=== PATIENT | male | born 1985 | race Caucasian/White ===

== ENCOUNTER → 2021-08-05 09:01 | Outpatient (BNVA) | payer OTHER, SELFPAY | PROVIDERS: Visit Provider Psychiatry & Neurology Psychiatry | DX: F33.2 Major depressive disorder, recurrent severe without psychotic features (principal) | CPT/HCPCS: 80061; 83036 ==

== ENCOUNTER → 2021-11-12 14:30 | Outpatient (BNVA) | payer MEDICAID, OTHER, SELFPAY ==
[2021-09-29 12:14] VITALS: BP 128/81; BMI 23.8
== END ==
PROVIDERS: Visit Provider Psychiatry & Neurology Psychiatry
DX: F41.1 Generalized anxiety disorder (principal); F33.2 Major depressive disorder, recurrent severe without psychotic features; F15.10 Other stimulant abuse, uncomplicated; F10.20 Alcohol dependence, uncomplicated; F12.20 Cannabis dependence, uncomplicated; F17.200 Nicotine dependence, unspecified, uncomplicated
CPT/HCPCS: 99214

== ENCOUNTER → 2021-12-17 11:19 | Outpatient (BNVA) | payer MEDICAID, SELFPAY ==
[2021-09-29 12:14] VITALS: BP 128/81; BMI 23.8
== END ==
PROVIDERS: PCP Family Medicine; Visit Provider Family Medicine
DX: R30.0 Dysuria (principal)
CPT/HCPCS: 81000; 87491; 87591

== ENCOUNTER 2021-12-20 18:45 | Emergency (ER) | payer MEDICAID, SELFPAY ==
[2021-09-29 12:14] VITALS: BP 128/81; BMI 23.8
[2021-12-20 19:05] VITALS: BP 150/75; PULSE 97; RESP 16; TEMP 36.7; O2SAT 94; BMI 25.0
--- NOTE | 2021-12-20 19:13 | W.ED.WOUNDLC ---
HPI - Wound/Laceration General: Chief Complaint: Wound/Laceration Stated Complaint: RT leg cyst Time Seen by Provider: 12/20/21 18:50 History of Present Illness: 36-year-old male patient comes in for area of erythema and tenderness to the right upper thigh. Patient reports noticing a lesion 2 days ago that looked like a wood. Today patient went to work and when he came home he had significant reddened area of redness with streaking around it. Patient denies any fever. Patient reports pain. Patient reports tetanus is up-to-date. Review of Systems General: Reports: 10 or more systems reviewed and unremarkable except in HPI and below Skin/Breast: Reports: erythema and changing lesions [facility] PFSH: Medical History (Updated 12/20/21 @ 19:26 by TON Helms) Psychiatric care Surgical History (Updated 12/17/21 @ 11:01 by Pamela Torres DO) History of facial surgery April 2021 Status post adenoidectomy Family History Grandmother Cancer colon Social History Smoking and tobacco status: current every day smoker cigarettes Packs smoked per day: 1 Years cigarettes smoked: 17 Quit status (tobacco): has tried quititng Number of times tried to quit tobacco: 2 Second hand smoke exposure: Yes Physical Exam Const: COMMON NORMALS: alert Resp: COMMON NORMALS: normal respiratory effort Cardio: COMMON NORMALS: regular rate and regular rhythm RATE: regular rate RHYTHM: regular rhythm Extremity: RIGHT LOWER EXTREMITY: Yes upper leg (8 cm area of redness surrounding a punctate lesion. No fluctuance) Neuro: SENSORIUM/ORIENTATION: Yes alert Course Vital Signs: Vital signs: Vital Signs Temperature 98.1 F 12/20/21 19:05 Pulse Rate 97 12/20/21 19:05 Respiratory Rate 16 12/20/21 19:05 Blood Pressure 150/75 12/20/21 19:05 Pulse Oximetry 94 12/20/21 19:05 MDM - Wound/Laceration Medical Decision Making 36-year-old male patient comes in for area of redness and tenderness to the right upper leg. On exam patient has a large area of redness to the right upper thigh approximately 8 cm. Patient has centralized punctate lesion with 2 cm of induration surrounding the lesion. No fluctuance is noted in the wound. Differential diagnosis includes cellulitis, folliculitis, insect bite with local reaction. Strong suspicion for cellulitis of the skin. Will cover for strep with ceftriaxone followed by Augmentin for 7 days. Patient was also covered for resistant staph with Bactrim DS 1 tablet twice a day for 7 days. Encourage plenty of fluids. Patient was written for 800 mg ibuprofen for pain. Recommend follow-up with primary care in 2 days for recheck. Return to the ER for high fever. Discharge Plan Discharge Patient Disposition: Home Clinical Impression: Cellulitis of right leg Condition: Stable Prescriptions: New Bactrim DS 800-160 mg tablet 1 tab PO DAILY 7 Days Qty: 14 0RF Augmentin 875-125 mg tablet 1 tab PO BID Qty: 14 0RF ibuprofen 800 mg tablet 800 mg PO Q8H PRN (Reason: pain) Qty: 20 0RF No Action bupropion HCl [Wellbutrin XL] 150 mg tablet extended release 24 hr 150 mg PO QAM Qty: 30 1RF naltrexone 50 mg tablet 50 mg PO DAILY Qty: 30 1RF trazodone 50 mg tablet 100 mg PO .HS PRN (Reason: insomnia) Qty: 60 1RF Discharge Orders: Discharge ED (Routine); Ordered 12/20/21 Ordered By: Ovidio Churchill Referrals: Pamela Torres DO [Primary Care Provider] - Discharge Diet: Usual diet Discharge Activity: Increase activity as tolerated Patient Instructions: Cellulitis (ED), Opioid Safety Activity Restrictions/Additional Instructions: Home and rest. Activity as tolerated. Warm moist packs to the area for comfort. Do not pick at the wound or try to pop the wound. Take antibiotics as directed. We are covering you for the 2 most common pathogens to cause cellulitis. You need to take both of them to cover these infections. Drink plenty of water with medicine. Follow-up with primary care for further instruction. Return to ER for new concerns. Coding Level of Care Code ED [facility] Staff for Emmanuel Razo
[2021-12-20] MEDS: sulfamethoxazole-trimeth DS 160-800 mg Tablet 1 TAB PO (19:52)
[2021-12-20] MEDS: lidocaine 1% INJ 20 mL 2.1 ML IM (19:53)
[2021-12-20] MEDS: ketorolac 60 mg/2 mL INJ IM (19:53)
[2021-12-20] MEDS: dexamethasone 10 mg/mL INJ IM (19:53)
[2021-12-20] MEDS: cefTRIAXone 1,000 mg SDV 1000 MG IM (19:53)
[2021-12-20 19:57] VITALS: BP 147/82; PULSE 87; RESP 16; TEMP 36.7; O2SAT 96
== END 2021-12-20 20:01 | disposition home or self-care (01) ==
PROVIDERS: Emergency Provider Nurse Practitioner Family; PCP Family Medicine
DX: L03.115 Cellulitis of right lower limb (principal); F17.210 Nicotine dependence, cigarettes, uncomplicated
CPT/HCPCS: 96372; 99283; J0696; J1100; J1885

== ENCOUNTER → 2022-03-03 11:00 | Outpatient (BNVA) | payer MEDICAID, SELFPAY ==
[2021-09-29 12:14] VITALS: BP 128/81; BMI 23.8
== END ==
PROVIDERS: PCP Family Medicine; Visit Provider Psychiatry & Neurology Psychiatry
DX: F41.1 Generalized anxiety disorder (principal); F33.2 Major depressive disorder, recurrent severe without psychotic features; F12.20 Cannabis dependence, uncomplicated; F17.200 Nicotine dependence, unspecified, uncomplicated; F15.10 Other stimulant abuse, uncomplicated
CPT/HCPCS: 99214

== ENCOUNTER → 2022-05-11 13:01 | Outpatient (BNVA) | payer MEDICAID, SELFPAY ==
[2021-09-29 12:14] VITALS: BP 128/81; BMI 23.8
== END ==
PROVIDERS: PCP Family Medicine; Visit Provider Nurse Practitioner Family
DX: F33.2 Major depressive disorder, recurrent severe without psychotic features (principal); F41.1 Generalized anxiety disorder; Z13.220 Encounter for screening for lipoid disorders; Z13.6 Encounter for screening for cardiovascular disorders; H53.452 Other localized visual field defect, left eye; H53.8 Other visual disturbances
CPT/HCPCS: 80053; 80061

== ENCOUNTER → 2022-08-17 09:04 | Outpatient (BNVA) | payer OTHER, SELFPAY ==
[2021-09-29 12:14] VITALS: BP 128/81; BMI 23.8
== END ==
PROVIDERS: PCP Family Medicine; Visit Provider Psychiatry & Neurology Psychiatry
DX: F33.2 Major depressive disorder, recurrent severe without psychotic features (principal)
CPT/HCPCS: 80061; 83036

== ENCOUNTER → 2024-09-23 10:55 | Outpatient (BNVA) | payer OTHER, SELFPAY ==
[2022-08-23 13:56] VITALS: BP 125/84; BMI 25.1
== END ==
PROVIDERS: PCP Family Medicine; Visit Provider Family Medicine
DX: R61 Generalized hyperhidrosis (principal)
CPT/HCPCS: 80053; 80061; 84439; 84443; 85025

== ENCOUNTER 2024-10-21 07:01 | Day surgery (SDC) | payer BC, MEDICAID, SELFPAY ==
[2024-10-16 10:07] VITALS: BP 125/84; BMI 25.1
[2024-10-21] VITALS (12 sets, daily range): BP systolic 117–145; BP diastolic 77–88; PULSE 65–93; RESP 17–26; TEMP 36.6–37.1; O2SAT 91–96; BMI 25.7
--- NOTE | 2024-10-21 05:15 | P.HPUD_ITS ---
Surgery/Procedure H&P Update DATE OF PROCEDURE: October 21, 2024 DATE H&P PERFORMED: 10/15/24 H&P UPDATE INFORMATION: I have reviewed H&P completed within last 30 days, I have examined patient prior to procedure, No changes to prior documentation and H&P is in [facility]MR on date indicated PLANNED PROCEDURE: Operation Date: 10/21/24 08:25 Proposed Procedures p Open Umbilical Hernia Repair w/ Mesh [id number], K42.9(Not Applicable) - Jermain Alves MD
[2024-10-21] MEDS: sodium chloride 0.9% 1,000 ML 30 ML IV (07:29)
[2024-10-21] MEDS: famotidine 20 mg/2 mL INJ IVP (07:32)
[2024-10-21] MEDS: ondansetron 2 mg/ML SDV 2 mL 4 MG IVP (07:32)
[2024-10-21] MEDS: scopolamine 1.5 Patch 1 PATCH TRANSDERMA (07:32)
--- NOTE | 2024-10-21 08:41 | P.ANESASSM_ITS ---
Pre-Anesthetic Assessment Height/Weight: Height 5 ft 8 in Weight 169 lb Temp Pulse Resp BP Pulse Ox O2 Del Method 98.0 F 68 18 136/84 96 Room Air 10/21/24 07:18 10/21/24 07:18 10/21/24 07:18 10/21/24 07:18 10/21/24 07:18 10/21/24 07:18 Preop Diagnosis: Umbilical hernia Operation Date: 10/21/24 08:25 Proposed Procedures p Open Umbilical Hernia Repair w/ Mesh [id number], K42.9(Not Applicable) - Jermain Alves MD Was Beta Nini taken within 24 hours: N/A Was Clonidine taken within 24 hours: N/A Last intake: Intake Last Liquid Date 10/20/24 Last Liquid Time 23:00 Last Solid Date 10/20/24 Last Solid Time 22:30 Social Alcohol and Tobacco Exam alert, oriented x 3, clear to auscultation bilaterally and regular rate & rhythm Airway Submandibular: within normal limits Cervical ROM: within normal limits Mallampati: Class II Dentition: full Comments: Comments: Few missing teeth, denies any loose Anesthetic Plan ASA status: 2 Anesthesia: General Other: Patient reports no issues with anesthesia in the past NPO since yesterday Current smoker, nicotine and marijuana Denies any cardiac issues Labs 09/23/2024 reviewed acceptable for procedure METs greater than 4 Plan for GETA Medications/Allergies Home Medications Medication Instructions Recorded Confirmed Last Taken Type No Known Home Medications 09/23/24 10/21/24 Unknown History Allergies Allergy/AdvReac Type Severity Reaction Status Date / Time cough medicine Allergy Intermediate Rash Uncoded 09/23/24 10:12 Current Medications Generic Name Dose Route Start Last Admin Trade Name Freq PRN Reason Stop Dose Admin Sodium Chloride 1,000 mls @ 30 mls/hr 10/21/24 07:15 10/21/24 07:29 Sodium Chloride 0.9% IV 10/22/24 07:14 30 mls/hr .Q24H JOSE Administration Ondansetron HCl 4 mg 10/21/24 07:04 10/21/24 07:32 Ondansetron 2 Mg/Ml Sdv 2 Ml IVP 4 mg Q5M PRN Administration NAUSEA AND VOMITING PFSH Anesthesia Medical History Hyperhidrosis Cannabis abuse Major depressive disorder, recurrent, mild Tobacco use disorder, moderate, dependence Nicotine dependence, cigarettes, with unspecified nicotine-induced disorders Methamphetamine abuse Nicotine dependence, uncomplicated Major depressive disorder, recurrent severe without psychotic features Surgical History History of facial surgery April 2021 Status post adenoidectomy Family History Grandmother Cancer colon Chronic kidney disease (CKD) Social History Smoking and tobacco/nicotine status: never used tobacco/nicotine Quit status (tobacco/nicotine): has tried quititng Number of times tried to quit tobacco: 3 Second hand smoke exposure: Yes Alcohol intake: current Alcohol intake frequency: holidays/special occasions only Alcohol type: beer Substance/Drug Use: current Substance/Drug use frequency: few times a month Other substance/drug use details: hx of methamphetamine use. last use 2018 Adopted: No Caregiver/support person: No Lives independently: Yes Household members: none Housing: Manufactured/Mobile home Marital status: Single Number of children: 0 Highest education level completed: GED or Equivalent service: No Current occupational status: employed Current occupation: cook Current occupational exposures/hazards: No Pets and animals: No Leisure activites: sports and other Leisure activities details: video games Current gender identity: Male Brenda/Protestant: None Special brenda needs: No Agree to transfusion: Yes Data Anesthesia Cardiac Studies: No Data to Display
[2024-10-21] MEDS: ceFAZolin 2,000 mg SDV 2000 MG IVP (08:55)
[2024-10-21] MEDS: lidocaine-epi 1% 20 mL INJ INJECTION (09:19)
[2024-10-21] MEDS: BUPivacaine 0.25% INJ 10 mL INJECTION (09:20)
--- NOTE | 2024-10-21 10:15 | PM.OP ---
Operative Report Date of procedure: October 21, 2024 Pre-op diagnosis: Umbilical hernia Post-op diagnosis: umbilical hernia measuring 1.5 cm Post-op findings: There was an umbilical hernia containing only fat. Procedure done: Open will call hernia repair with mesh. Implants: 4.3 cm Ventralex mesh Specimens removed/disposition: None Surgeon: Jermain Alves MD [employer]tr [employer] Driver: HERMINIO OR STaff Estimated blood loss: 5 Complications: none apparent Brief History: 31-year-old male who presented to my office for evaluation of umbilical hernia, after discussion risk benefits with side to proceed with an open repair with mesh. Procedure: Patient was brought into the OR, he was placed in a supine position. General anesthesia was given. The abdomen was prepped and draped in the usual sterile fashion. A timeout was conducted. I then made infraumbilical semicircular incision, the incision was deepened to subcutaneous tissue and was carried down all the way down to the fascia, I then proceeded to use a Brigid clamp to circumferentially dissect around the umbilical stalk and the hernia. Once the circumferential dissection was completed I then proceeded to carefully transect umbilical stalk with careful consideration of preserving the skin as well as the underlying hernia and hernia sac. Once umbilical stalk was transected I had full visualization of the defect, there was some incarcerated fat that with some effort I was able to push in, the defect measured about 1.5 cm. Then proceeded to clean the edges with electrocautery. I was able to circumferentially clean the fascia and it appeared healthy, the final defect measuring was 1.5 cm. I then proceeded to develop the preperitoneal space using blunt dissection once the space was developed I placed a 4.3 cm Ventralex mesh, the mesh was noted to be laying flat. I then proceeded to close the defect and I incorporated the tails of the mesh in the closure this was done using #0 Prolene [id number] sutures. Careful consideration was taken not to injure any underlying structures. Once the defect was closed no evidence of hernia was noted as the anesthesia team for a Valsalva maneuver no evidence of any areas of weakness in the abdominal wall was noted. The wound was irrigated and hemostasis was achieved. I infiltrated the wound with local anesthesia. I then proceeded to tack the umbilicus to the center of the repair to recreate the bellybutton, I did this with a #2-0 Vicryl. I then closed the wound in layers using #3-0 Vicryl for the subcutaneous tissue #4 Monocryl for the skin. Dermabond was applied and after Dermabond dried I placed a compressive dressing. At the end of the procedure all counts were correct, the patient tolerated well the procedure was transferred to PACU in stable condition.
[2024-10-21] MEDS: oxyCODONE 5 mg IR Tab/Cap PO (11:07)
[2024-10-21] MEDS: fentaNYL 50 mcg/mL INJ 2mL IVP (11:31)
--- NOTE | 2024-10-21 12:29 | ANE.PACU2 ---
Inpatient post-anesthesia follow up: Airway intact: Yes Vital signs: Temperature 97.8 F Pulse Rate 65 Respiratory Rate 18 Blood Pressure 117/77 Pulse Oximetry 94 Oxygen Delivery Me thod Room Air Oxygen Flow Rate Fraction of Inspir ed Oxygen Hydration adequate: Yes Nausea and vomiting: No Pain level: 1 Mental status: Baseline
== END 2024-10-21 12:29 | disposition home or self-care (01) ==
PROVIDERS: PCP Family Medicine; Visit Provider Surgery
PROC: (CPT 49505; principal; 2024-10-21 08:15)
DX: K42.9 Umbilical hernia without obstruction or gangrene (principal); F17.219 Nicotine dependence, cigarettes, with unspecified nicotine-induced disorders
CPT/HCPCS: 49505; J0690; J1100; J1171; J2250; J2405; J2704; J3010; J3490; J7030